=== PATIENT | male | born 1955 | race Caucasian/White ===

== ENCOUNTER → 2017-01-19 | Day surgery (SDC) | payer BC ==
[~2017-01-19] MED LIST: BUPIVACAINE/EPINEPHRINE 0.5% 50 ML VIAL ONE; KETOROLAC TROMETHAMINE 30 MG/ML (IVP) VIAL IV PUSH ONE; LACTATED RINGER'S 1000 ML INJ 1,000 ML ONE; LOSA25TA31 PO; MIDAZOLAM HCL 2 MG/2 ML VIAL ONE; ONDANSETRON HCL 4 MG/2 ML VIAL IV PUSH ONE; PROPOFOL 200 MG/20 ML AMP IV ONE
--- NOTE | 2017-01-19 11:26 | TN ---
cc: MIMI MOMIN M.D. DATE OF SURGERY: 01/19/2017 PREOPERATIVE DIAGNOSIS Recurrent 6 cm soft tissue mass right posterior superior neck. POSTOPERATIVE DIAGNOSIS 1. Recurrent 6 cm soft tissue mass right posterior superior neck. 2. 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 PROCEDURE PERFORMED Excision 6 cm soft tissue mass right posterior upper neck. SURGEON Mimi Momin MD ANESTHESIA General LMA with local. COMPLICATIONS None. INDICATION FOR PROCEDURE Mr. Jacobson is a pleasant 61-year-old gentleman who reported enlarging mass in his right posterior superior neck. He reports he had a small lipoma here many years ago and this was excised by video production coordinator. The mass returning and got quite big. He was seen and evaluated in the office. Mass measured about 6 cm in diameter. I offered him elective excision in the operating room due to its large size and challenging location. He agreed and signed consents. DETAILS OF PROCEDURE The patient was identified, brought to the operating room and placed supine on the operating table. After adequate general anesthesia was achieved with LMA, he was then turned in the left lateral decubitus position with appropriate padding for hips, knees, shoulders and ankles. Left posterior superior neck was then prepped and draped in the standard surgical fashion. 0.25% Marcaine was injected around the mass. A longitudinal incision was made right along the hairline. Subcutaneous tissue was dissected with sharp dissection. Immediately we encountered encapsulated fatty mass. Using meticulous sharp dissection the mass was excised circumferentially in toto without significantly disturbing its capsule. Mass was sent to pathology for analysis. The wound was copiously irrigated with normal saline solution. All loose fatty fragments were removed. By direct palpation there was no residual mass. The wound was then irrigated a second time and then injected with additional local anesthetic. Wound was then closed in two layers using 3-0 and 4-0 Vicryl. The patient tolerated the procedure well, was awakened and brought to recovery in stable condition. MD ANNE-MARIE Chacon/YUNIOR /11:14 AM /11:19 AM
== END | disposition home or self-care (01) ==
LOC: ESDC 08:42
PROVIDERS: ATTEND Surgery Trauma Surgery
DX: D17.0 Benign lipomatous neoplasm of skin and subcutaneous tissue of head, face and neck (principal)
CPT/HCPCS: 00300; 21552; 88304; J1885; J2250; J2405; J3010; J7120; 88305